=== PATIENT | male | born 1995 | race Caucasian/White ===

== ENCOUNTER 2017-08-19 14:43 | Emergency (ER) | payer BC ==
[2017-08-19 15:06] VITALS: BP 115/64
--- NOTE | 2017-08-19 16:27 | UC ---
Throat Pain/Nasal Elian HPI - HPI Summary HPI Summary: 22 yo WM p/w sore throat x few days, has had strep 3 weeks ago and one other time prior to today. Denies chills, cough or URI sx, brought girlfriend with him to be tested for strep - History of Current Complaint Chief Complaint: UCRespiratory Stated Complaint: SORE THROAT Time Seen by Provider: 08/19/17 15:41 Hx Obtained From: Patient Onset/Duration: Lasting Days Severity: Moderate Pain Intensity: 1 Pain Scale Used: 0-10 Numeric - Allergies/Home Medications Allergies/Adverse Reactions: Allergies Allergy/AdvReac Type Severity Reaction Status Date / Time No Known Allergies Allergy Verified 08/19/17 15:06 Home Medications: Home Medications Loratadine [Claritin] 10 mg PO 08/19/17 [History] PMH/Surg Hx/FS Hx/Imm Hx - Additional Past Medical History Additional PMH: strep Previously Healthy: Yes - Surgical History Surgical History: Yes Surgery Procedure, Year, and Place: varacoseal - Social History Alcohol Use: Occasionally Substance Use Type: Marijuana Substance Use Comment - Amount & Last Used: less than once every 2 months Smoking Status (MU): Never Smoked Tobacco Review of Systems Constitutional: Negative Skin: Negative Eyes: Negative ENT: Sore Throat Respiratory: Negative Cardiovascular: Negative Gastrointestinal: Negative Genitourinary: Negative Motor: Negative Neurovascular: Negative Musculoskeletal: Negative Neurological: Negative Psychological: Negative All Other Systems Reviewed And Are Negative: Yes Physical Exam Triage Information Reviewed: Yes Appearance: Well-Appearing Vital Signs: Initial Vital Signs Temp 36.7 C 08/19/17 14:59 Pulse 73 08/19/17 14:59 Resp 18 08/19/17 14:59 BP 115/64 08/19/17 14:59 Pulse Ox 100 08/19/17 14:59 Vital Signs Reviewed: Yes Eye Exam: Normal ENT: Positive: Pharyngeal erythema, TMs normal. Negative: Nasal congestion, Nasal drainage, Tonsillar swelling, Tonsillar exudate Dental Exam: Normal Neck: Positive: Enlarged Nodes @ - mild left cervial LAD L>R Respiratory Exam: Normal Respiratory: Positive: Lungs clear Cardiovascular Exam: Normal Abdominal Exam: Normal Musculoskeletal Exam: Normal Neurological Exam: Normal Psychological Exam: Normal Skin Exam: Normal Throat Pain/Nasal Course/Dx - Course Course Of Treatment: rapid strep neg for strep, pt insists on sending out for throat cx due to having had multiple strep throat in the past - Differential Dx/Diagnosis Provider Diagnoses: pharyngitis Discharge - Sign-Out/Discharge Documenting (check all that apply): Discharge/Admit/Transfer - Discharge Plan Condition: Stable Disposition: HOME Patient Education Materials: Pharyngitis (ED) Referrals: [facility] - [facility] [Primary Care Provider] - Additional Instructions: Supportive tx, Call urgent care in few days for throat culture results - Billing Disposition and Condition Condition: STABLE Disposition: HOME
== END 2017-08-19 15:55 | disposition home or self-care (01) ==
LOC: UCEAST 14:43
DX: J02.9 Acute pharyngitis, unspecified (principal)
CPT/HCPCS: 87070; 87651; 99211; G0463